=== PATIENT | male | born 1965 | race Caucasian/White ===

== ENCOUNTER 2017-12-31 08:19 | Emergency (ER) | payer MEDICAID ==
[2017-12-31] MEDS ORDERED: 0.9 % SODIUM CHLORIDE 1,000 ML BAG IV ONE (08:32)
[2017-12-31] MEDS ORDERED: ONDANSETRON HCL IV 4 MG/2 ML VIAL IV ONE (08:32)
[2017-12-31 08:46] LABS: BASO % 0.4 % (0-6); EOS % 2.2 % (0-6); GRAN % 72.3 % (47-80); HEMATOCRIT 46.8 % (42.0-52.0); HEMOGLOBIN 15.7 gm/dl (14.0-18.0); MEAN CELL VOLUME 87.3 fl (81-97); MEAN CORPUSCULAR HEMOGLOBIN 29.3 pg (27-33); MEAN CORPUSCULAR HGB CONC 33.5 g/dl (32-36); MEAN PLATELET VOLUME 11.1 fl (7.4-10.4); MONO % 5.1 % (0-9); PLATELET COUNT 291 K/uL (130-400); RED BLOOD COUNT 5.36 M/uL (4.40-5.70); RED CELL DISTRIBUTION WIDTH 15.2 % (11.5-14.5); WHITE BLOOD COUNT W/O DIFF 13.4 K/uL (4.2-12.2)
--- NOTE | 2017-12-31 08:47 | Emergency Department Record ---
History of Present Illness - General Chief Complaint: Abdominal Pain Stated Complaint: ABD PAIN/ BLOATING Time Seen by Provider: 12/31/17 08:29 Source: Patient Mode of Arrival: Ambulatory Limitations: No limitations - History of Present Illness Initial Comments: pt has been having ap intermittently for a few months. he has had a neg endoscopy and colonoscopy. he has not had a ct. he said he gets very bloated and uncomfortable. he vomited this am and is constipated MD Complaint: Abdominal pain Onset/Timin -: Days(s) Location: Diffuse Radiation: None Migration to: No migration Severity: Mild Severity scale (1-10): 1 Quality: Fullness Improves With: Nothing Worsens With: Nothing Associated Symptoms: Nausea, Vomiting - Related Data Home Medications Medication Instructions Recorded Confirmed Last Taken Atorvastatin Calcium 10 mg PO DAILY 12/31/17 12/31/17 Unknown Goodrich-3 Fatty Acids/Fish Oil [Fish 1 each PO DAILY 12/31/17 12/31/17 Unknown Oil 1,000 mg Capsule] Pantoprazole Sodium 40 mg PO DAILY 12/31/17 12/31/17 Unknown Allergies Allergy/AdvReac Type Severity Reaction Status Date / Time No Known Drug Allergies Allergy Verified 12/31/17 08:26 Travel Screening - Travel/Exposure Within Last 30 Days Have you traveled within the last 30 days?: No Review of Systems Reviewed: No additional complaints except as noted below Constitutional: Reports: As per HPI. Denies: Chills, Fever, Malaise, Night sweats, Weakness, Weight change Eyes: Reports: As per HPI. Denies: Eye discharge, Eye pain, Photophobia, Vision change ENT: Reports: As per HPI. Denies: Congestion, Dental pain, Ear pain, Epistaxis , Hearing loss, Throat pain Respiratory: Reports: As per HPI. Denies: Cough, Dyspnea, Hemoptysis, Stridor, Wheezes Cardiovascular: Reports: As per HPI. Denies: Arrhythmia, Chest pain, Dyspnea on exertion, Edema, Murmurs, Orthopnea, Palpitations, Paroxysmal nocturnal dyspnea, Rheumatic Fever, Syncope Endocrine: Reports: As per HPI. Denies: Fatigue, Heat or cold intolerance, Polydipsia, Polyuria Gastrointestinal: Reports: As per HPI. Denies: Abdominal pain, Constipation, Diarrhea, Hematemesis, Hematochezia, Melena, Nausea, Vomiting Genitourinary: Reports: As per HPI. Denies: Dysuria, Frequency, Hematuria, Incontinence, Retention, Testicular pain, Testicular mass, Urgency Musculoskeletal: Reports: As per HPI. Denies: Arthralgia, Back pain, Gout, Joint swelling, Myalgia, Neck pain Skin: Reports: As per HPI. Denies: Bruising, Change in color, Change in hair/ nails, Lesions, Pruritus, Rash Neurological: Reports: As per HPI. Denies: Abnormal gait, Confusion, Headache, Numbness, Paresthesias, Seizure, Tingling, Tremors, Vertigo, Weakness Psychiatric: Reports: As per HPI. Denies: Anxiety, Auditory hallucinations, Depression, Homicidal thoughts, Suicidal thoughts, Visual hallucinations Hematological/Lymphatic: Reports: As per HPI. Denies: Anemia, Blood Clots, Easy bleeding, Easy bruising, Swollen glands Past Medical History - SOCIAL HISTORY Smoking Status: Current every day smoker Alcohol Use: None Drug Use: Heavy Drug Use Detail:: Marijuana - RESPIRATORY Hx Respiratory Disorders: No - CARDIOVASCULAR Hx Cardio Disorders: Yes Comment:: high cholesterol - NEURO Hx Neuro Disorders: No - GI Hx GI Disorders: Yes Hx Reflux: Yes - Hx Genitourinary Disorders: No - ENDOCRINE Hx Endocrine Disorders: No - MUSCULOSKELETAL Hx Musculoskeletal Disorders: No - PSYCH Hx Psych Problems: No - HEMATOLOGY/ONCOLOGY Hx Hematology/Oncology Disorders: No Family Medical History Any Significant Family History?: No Physical Exam - General General Appearance: Alert, Oriented x3, Cooperative, No acute distress - Head Head exam: Normal inspection - Eye Eye exam: Normal appearance, PERRL, EOMI Pupils: Normal accommodation - ENT ENT exam: Normal exam, Mucous membranes moist, Normal external ear exam, Normal orophraynx Ear exam: Normal external inspection. negative: External canal tenderness Nasal Exam: Normal inspection. negative: Discharge, Sinus tenderness Mouth exam: Normal external inspection, Tongue normal Teeth exam: Normal inspection. negative: Dental caries Throat exam: Normal inspection. negative: Tonsillar erythema, Tonsillar exudate - Neck Neck exam: Normal inspection, Full ROM. negative: Tenderness - Respiratory Respiratory exam: Normal lung sounds bilaterally. negative: Respiratory distress - Cardiovascular Cardiovascular Exam: Regular rate, Normal rhythm, Normal heart sounds - GI/Abdominal GI/Abdominal exam: Soft, Normal bowel sounds, Distended, Tenderness - Rectal Rectal exam: Deferred - exam: Deferred - Extremities Extremities exam: Normal inspection, Full ROM, Normal capillary refill. negative: Tenderness - Back Back exam: Reports: Normal inspection, Full ROM. Denies: Muscle spasm, Rash noted, Tenderness - Neurological Neurological exam: Alert, CN II-XII intact, Normal gait, Oriented X3 - Psychiatric Psychiatric exam: Normal affect, Normal mood - Skin Skin exam: Dry, Intact, Normal color, Warm Course Vital Signs 12/31/17 08:22 Temperature 97.9 F Pulse Rate 66 Respiratory 18 Rate Blood Pressure 156/96 Pulse Ox 99 - Reevaluation(s) Reevaluation #1: 12/31/17 11:17 pt doing well. delay in ct because labs were delayed as maintenance was being done and labs had to be transported to [place] Medical Decision Making - Lab Data Result diagrams: 12/31/17 08:35 12/31/17 08:35 Disposition Disposition: Transfer Clinical Impression: Cholecystitis, Cholelithiasis and acute cholecystitis with obstruction Disposition: Acute Care Hospital Transfer Transfer To: [facility] Reason For Transfer: surgery Accepting Physician: dr chi Time Discussed w/Accepting Physician: 13:27 Forms: Patient Portal Access Quality - Quality Measures Quality Measures: N/A - Blood Pressure Screening Does Patient Have Any of the Following: No Blood Pressure Classification: Hypertensive Reading Systolic Measurement: 156 Diastolic Measurement: 96 Screening for High Blood Pressure: < First Hypertensive BP, F/U Documented > [ G8950] First Hypertensive Follow-up Interventions: Follow-up with rescreen GT 1 day and LT 4 weeks.
[2017-12-31] MEDS ORDERED: KETOROLAC 30 MG/ML VIAL IVP ONE (09:36)
[2017-12-31] MEDS ORDERED: ONDANSETRON HCL IV 4 MG/2 ML VIAL IVP ONE (09:36)
[2017-12-31 11:12] LABS: BLOOD UREA NITROGEN 21 mg/dL (6-20); EST GLOMERULAR FILTRATION RATE > 60 mL/min; GLUCOSE,RANDOM 113 mg/dL (74-109)
[2017-12-31 11:13] LABS: ALBUMIN 4.1 g/dL (4.0-5.0); TOTAL PROTEIN 8.1 g/dL (6.6-8.7)
[2017-12-31 11:14] LABS: ALKALINE PHOSPHATASE 92 U/L (40-129); ALT/SGPT 21 U/L (<41); AST/SGOT 21 U/L (10.0-50.0); BILIRUBIN,DIRECT < 0.1 mg/dL (0-0.3)
[2017-12-31 11:16] LABS: LIPASE 20 U/L (13-60)
[2017-12-31] MEDS ORDERED: ERTAPENEM SODIUM 1 G in 0.9 % SODIUM CHLORIDE 100ML 100 ML IVPB ONE (13:00)
--- NOTE | 2018-01-02 08:53 | CT SCAN REPORT ---
EXAM: CT SCAN ABDOMEN/PELVIS W CONTRAST HISTORY: ABDOMINAL PAIN. TECHNIQUE: Sequential axial images were obtained from the diaphragms through the ischiorectal fossa after intravenous administration of 100 mL of Omnipaque- 300 contrast material. Oral contrast was also administered. FINDINGS: The visualized lung bases appear normal. The heart and pericardium appears normal. The liver appears homogeneous. There is a gallstone present within the gallbladder. There is wall thickening of the gallbladder and pericholecystic fluid. Acute cholecystitis is suspected. There is no ductal dilatation. The pancreas appears normal. There is splenic granulomatous disease. The adrenal glands and kidneys appear normal. Small bowel appears normal. Colon appears normal. The urinary bladder appears normal. The osseous structures are normal. IMPRESSION: GALLSTONES PRESENT WITHIN THE GALLBLADDER. THERE IS WALL THICKENING AND ENHANCEMENT AND PERICHOLECYSTIC FLUID. FINDINGS ARE SUGGESTIVE OF ACUTE CHOLECYSTITIS. JOB NUMBER: [id number] [facility]
== END 2017-12-31 14:21 | disposition short-term general hospital (02) ==
LOC: ER 08:19
DX: K80.01 Calculus of gallbladder with acute cholecystitis with obstruction (principal); R11.2 Nausea with vomiting, unspecified; F17.210 Nicotine dependence, cigarettes, uncomplicated
CPT/HCPCS: 99285 ×2; 96376; 96365; 96375; 96361; 83690; 85025; 80076; 80048; 74177; Q9967; J1335; J1885; J2405; J7030

== ENCOUNTER 2018-08-14 09:37 | Emergency (ER) | payer MEDICAID ==
[2018-08-14] MEDS ORDERED: CLINDAMYCIN 600MG/50ML PREMIX 600 MG/50 ML BAG IVPB ONE (10:04)
[2018-08-14 10:20] LABS: BASO % 0.5 % (0-6); EOS % 2.7 % (0-6); GRAN % 62.2 % (47-80); HEMATOCRIT 47.7 % (42.0-52.0); HEMOGLOBIN 15.9 gm/dl (14.0-18.0); LYMPH % 28.7 % (16-45); MEAN CELL VOLUME 88.2 fl (81-97); MEAN CORPUSCULAR HEMOGLOBIN 29.4 pg (27-33); MEAN CORPUSCULAR HGB CONC 33.3 g/dl (32-36); MEAN PLATELET VOLUME 10.6 fl (7.4-10.4); MONO % 5.9 % (0-9); PLATELET COUNT 263 K/uL (130-400); RED BLOOD COUNT 5.41 M/uL (4.40-5.70); WHITE BLOOD COUNT W/O DIFF 11.2 K/uL (4.2-12.2)
--- NOTE | 2018-08-14 10:31 | Emergency Department Record ---
History of Present Illness - General Chief complaint: Extremity Problem Stated complaint: L INDEX FINGER SWOLLEN Time Seen by Provider: 08/14/18 10:03 Source: Patient Mode of Arrival: Ambulatory Limitations: No limitations - History of Present Illness Initial comments: pt was removing tbrush and grabbed a thorned branch. he had several thorns stuck in his left index finger. he pulled several out. he now has swelling and tenderness and erythema. he is unable to flex finger MD Complaint: Extremity pain, Extremity swelling Onset/Timin -: Days(s) Location: Left, Hand Severity scale (1-10): 10 Quality: Aching Consistency: Constant Worsens with: Palpation Associated Symptoms: Denies other symptoms - Related Data Allergies Allergy/AdvReac Type Severity Reaction Status Date / Time No Known Drug Allergies Allergy Verified 08/14/18 09:51 Travel Screening - Travel/Exposure Within Last 30 Days Have you traveled within the last 30 days?: No - Travel/Exposure Within Last Year Have you traveled outside the [place] in the last year?: No - Additonal Travel Details Have you been exposed to anyone with a communicable illness?: No - Travel Symptoms Symptom Screening: None Review of Systems Reviewed: No additional complaints except as noted below Constitutional: Reports: As per HPI. Denies: Chills, Fever, Malaise, Night sweats, Weakness, Weight change Eyes: Reports: As per HPI. Denies: Eye discharge, Eye pain, Photophobia, Vision change ENT: Reports: As per HPI. Denies: Congestion, Dental pain, Ear pain, Epistaxis , Hearing loss, Throat pain Respiratory: Reports: As per HPI. Denies: Cough, Dyspnea, Hemoptysis, Stridor, Wheezes Cardiovascular: Reports: As per HPI. Denies: Arrhythmia, Chest pain, Dyspnea on exertion, Edema, Murmurs, Orthopnea, Palpitations, Paroxysmal nocturnal dyspnea, Rheumatic Fever, Syncope Endocrine: Reports: As per HPI. Denies: Fatigue, Heat or cold intolerance, Polydipsia, Polyuria Gastrointestinal: Reports: As per HPI. Denies: Abdominal pain, Constipation, Diarrhea, Hematemesis, Hematochezia, Melena, Nausea, Vomiting Genitourinary: Reports: As per HPI. Denies: Dysuria, Frequency, Hematuria, Incontinence, Retention, Testicular pain, Testicular mass, Urgency Musculoskeletal: Reports: As per HPI. Denies: Arthralgia, Back pain, Gout, Joint swelling, Myalgia, Neck pain Skin: Reports: As per HPI. Denies: Bruising, Change in color, Change in hair/ nails, Lesions, Pruritus, Rash Neurological: Reports: As per HPI. Denies: Abnormal gait, Confusion, Headache, Numbness, Paresthesias, Seizure, Tingling, Tremors, Vertigo, Weakness Psychiatric: Reports: As per HPI. Denies: Anxiety, Auditory hallucinations, Depression, Homicidal thoughts, Suicidal thoughts, Visual hallucinations Hematological/Lymphatic: Reports: As per HPI. Denies: Anemia, Blood Clots, Easy bleeding, Easy bruising, Swollen glands Past Medical History - SOCIAL HISTORY Smoking Status: Current every day smoker Alcohol Use: None Drug Use: Rare Drug Use Detail:: Marijuana - RESPIRATORY Hx Respiratory Disorders: No - CARDIOVASCULAR Hx Cardio Disorders: Yes Comment:: high cholesterol - NEURO Hx Neuro Disorders: No - GI Hx GI Disorders: Yes Hx Reflux: Yes - Hx Genitourinary Disorders: No - ENDOCRINE Hx Endocrine Disorders: No - MUSCULOSKELETAL Hx Musculoskeletal Disorders: No - PSYCH Hx Psych Problems: No - HEMATOLOGY/ONCOLOGY Hx Hematology/Oncology Disorders: No Family Medical History Any Significant Family History?: Yes Physical Exam - General General Appearance: Alert, Oriented x3, Cooperative, No acute distress - Head Head exam: Normal inspection - Eye Eye exam: Normal appearance, PERRL, EOMI Pupils: Normal accommodation - ENT ENT exam: Normal exam, Mucous membranes moist, Normal external ear exam, Normal orophraynx Ear exam: Normal external inspection. negative: External canal tenderness Nasal Exam: Normal inspection. negative: Discharge, Sinus tenderness Mouth exam: Normal external inspection, Tongue normal Teeth exam: Normal inspection. negative: Dental caries Throat exam: Normal inspection. negative: Tonsillar erythema, Tonsillar exudate - Neck Neck exam: Normal inspection, Full ROM. negative: Tenderness - Respiratory Respiratory exam: Normal lung sounds bilaterally. negative: Respiratory distress - Cardiovascular Cardiovascular Exam: Regular rate, Normal rhythm, Normal heart sounds - GI/Abdominal GI/Abdominal exam: Soft, Normal bowel sounds. negative: Tenderness - Rectal Rectal exam: Deferred - exam: Deferred - Extremities Extremities exam: Normal inspection, Full ROM, Normal capillary refill, Tenderness Image of Hand: 1 - erythema, swelling, tenderness - Back Back exam: Reports: Normal inspection, Full ROM. Denies: Muscle spasm, Rash noted, Tenderness - Neurological Neurological exam: Alert, CN II-XII intact, Normal gait, Oriented X3 - Psychiatric Psychiatric exam: Normal affect, Normal mood - Skin Skin exam: Dry, Intact, Normal color, Warm Course Vital Signs 08/14/18 09:45 Temperature 97.7 F Pulse Rate 85 Respiratory 18 Rate Blood Pressure 142/107 Pulse Ox 96 - Reevaluation(s) Reevaluation #1: 08/14/18 12:24 d/w dr razo who wants pt transferred to [facility] 08/14/18 12:27 Medical Decision Making - Lab Data Result diagrams: 08/14/18 10:12 Lab Results 08/14/18 Range/Units 10:12 WBC 11.2 (4.2-12.2) K/uL RBC 5.41 (4.40-5.70) M/uL Hgb 15.9 (14.0-18.0) gm/dl Hct 47.7 (42.0-52.0) % MCV 88.2 (81-97) fl MCH 29.4 (27-33) pg MCHC 33.3 (32-36) g/dl RDW 15.0 H (11.5-14.5) % Plt Count 263 (130-400) K/uL MPV 10.6 H (7.4-10.4) fl Gran % 62.2 (47-80) % Lymphocytes % 28.7 (16-45) % Monocytes % 5.9 (0-9) % Eosinophils % 2.7 (0-6) % Basophils % 0.5 (0-6) % Disposition Disposition: Transfer Clinical Impression: Flexor tenosynovitis of finger Disposition: Acute Care Hospital Transfer Transfer To: [facility] Reason For Transfer: needs hand specialist Accepting Physician: jude razo and mariluz doc Time Discussed w/Accepting Physician: 12:27 Forms: Patient Portal Access Quality - Quality Measures Quality Measures: N/A - Blood Pressure Screening Does Patient Have Any of the Following: No Blood Pressure Classification: Hypertensive Reading Systolic Measurement: 142 Diastolic Measurement: 107 Screening for High Blood Pressure: < First Hypertensive BP, F/U Documented > [ G8950] First Hypertensive Follow-up Interventions: Follow-up with rescreen GT 1 day and LT 4 weeks.
--- NOTE | 2018-08-16 11:09 | RADIOLOGY REPORT ---
EXAM: LEFT INDEX FINGER HISTORY: PUNCTURE WOUND, REDNESS AND SWELLING. TECHNIQUE: Three views of the left index finger were obtained. Comparison: None. FINDINGS: Generalized soft tissue swelling/prominence throughout the index finger with focal soft tissue prominence along the dorsal aspect of the proximal interphalangeal joint. No radiopaque foreign bodies. Tiny 1 mm calcific density along the dorsal aspect of the distal interphalangeal joint. No definite fracture seen or dislocation. IMPRESSION: 1. LEFT INDEX FINGER SOFT TISSUE SWELLING, ABOVE. NO RADIOPAQUE FOREIGN BODIES. 2. NO DEFINITE ACUTE OSSEOUS FINDINGS. 3. TINY 1 MM CALCIFIC DENSITY NEAR THE DISTAL INTERPHALANGEAL JOINT, MAY BE DEGENERATIVE IN NATURE. [facility]: [id number] [facility]
== END 2018-08-14 12:48 | disposition short-term general hospital (02) ==
LOC: ER 09:37
DX: M65.842 Other synovitis and tenosynovitis, left hand (principal); F17.210 Nicotine dependence, cigarettes, uncomplicated
CPT/HCPCS: 73140; 85025; 96365; 99284